=== PATIENT | female | born 1935 | race Caucasian/White ===

== ENCOUNTER → 2017-03-27 | Outpatient (CLI) | payer MEDICARE, OTHER ==
[~2017-03-27] MED LIST: CALCIUM + VITAM1 TAB PO; CIPRO PO; CLARITIN10 M2 PO; ECOTRIN325 MG PO; FLAGYL PO; FLEXERIL10 MG PO; GLUCOSAMINE CH1 EACH PO; HCTZ PO; MULTIVITAMIN W-1 TAB PO; NAPROSYN500 MG PO; PLENDIL10 MG PO; PRINIVIL10 MG PO; TAMOXIFEN CITRA20 MG PO; ZOCOR20 MG PO; ZOFRANODT PO
--- NOTE | ~2017-03-27 | US37 ---
[facility] A Service of [facility] & [facility] RADIOLOGY TEXT RESULTS PATIENT: DERRICK KEARNEY LOCATION: CNIV : 33 UNIT #: [id number] AGE: [address]: Erlin Berg MD SEX: F ORDER DR: [id number] [facility] [address] [place], [place] [address] [id number] O MR#: [id number] Acc #: [id number] NAME: DERRICK KEARNEY : 1935 SEX: F STUDY DATE/TIME: 03/27/2017 10:11 UNIT: CNIV ROOM: STUDY DESCRIPTION: US Carotid W/Doppler Bilateral Attending Physician: Erlin Berg M.D. Referring Physician: Erlin Berg M.D. Ordering Physician: Erlin Berg M.D. Primary Care Physician: Ran Hutchison M.D. MEDICAL IMAGING REPORT This report is preliminary unless electronic signature is present EXAM Carotid duplex scan, 03/27/17 HISTORY Carotid stenosis. FINDINGS The right common carotid artery has no significant plaque. There is heterogeneous dense plaque in the right carotid bulb which extends up into the proximal internal and external carotid arteries. The right internal carotid artery is noted to be relatively tortuous. Peak systolic velocity in the mid right internal carotid artery is 207 cm/sec with an end diastolic velocity of 50 cm/sec. There does not appear to be a focal stenosis in the mid internal carotid artery on B-mode imaging to correlate with the elevated velocities. The ICA/CCA ratio on the right is 2.3. Peak systolic velocity in the right external carotid artery is 105 cm/sec. The right vertebral artery is patent with antegrade flow. The left common carotid artery has no significant plaque. There is heterogeneous dense plaque in the left carotid bulb which extends up into the proximal internal and external carotid arteries. The left internal carotid artery is also relatively tortuous. Peak systolic velocity in the mid left internal carotid artery is 138 cm/sec with an end diastolic velocity of 37 cm/sec. The ICA/CCA ratio on the left is 1.0. Peak systolic velocity in the left external carotid artery is 134 cm/sec. The left vertebral artery is patent with antegrade flow. IMPRESSION Velocities in the internal carotid arteries are consistent with greater than or equal to 70% stenosis of the right internal carotid artery, and 50% to 69% stenosis of the left internal carotid artery, but these velocities may be falsely elevated because of tortuosity of the vessels. [facility] A Service of [facility] RADIOLOGY TEXT RESULTS PATIENT: DERRICK KEARNEY LOCATION: CNIV : 33 UNIT #: [id number] AGE: [address]: Erlin Berg MD SEX: F ORDER DR: This stenosis appears to be less severe in both carotid arteries by B-mode imaging. No significant stenosis of the right external carotid artery. Significant stenosis of the left external carotid artery. Patent vertebral arteries bilaterally with antegrade flow. Dictated by... Dg Piper M.D. THIS IS AN ELECTRONICALLY VERIFIED REPORT Dg Piper M.D. at 03/28/2017 7:30 AM Kenzie TD: 03/27/2017 21:59 JOB #: [id number] MEDICAL IMAGING REPORT Page 1 of 1 COPY
== END | disposition home or self-care (01) ==
LOC: CNIV 09:45
DX: I65.23 Occlusion and stenosis of bilateral carotid arteries (principal); E78.5 Hyperlipidemia, unspecified; I10 Essential (primary) hypertension
CPT/HCPCS: 93880

== ENCOUNTER → 2017-04-16 | Outpatient (CLI) | payer MEDICARE, OTHER ==
--- NOTE | ~2017-04-16 | MY11 ---
[facility] A Service of [facility] RADIOLOGY TEXT RESULTS PATIENT: DERRICK KEARNEY LOCATION: [facility] : 33 UNIT #: [id number] AGE: [address]: Tommie Alas MD SEX: F ORDER DR: [id number] [place] [id number] O MR#: [id number] Acc #: [id number] NAME: DERRICK KEARNEY : 1935 SEX: F STUDY DATE/TIME: 04/16/2017 10:55 UNIT: [facility] ROOM: STUDY DESCRIPTION: MY Mammogram Screening Dig Rohan Attending Physician: Tommie Alas M.D. Referring Physician: Tommie Alas M.D. Ordering Physician: Tommie Alas M.D. Primary Care Physician: Ran Hutchison M.D. MEDICAL IMAGING REPORT This report is preliminary unless electronic signature is present. EXAM Digital screening mammogram, 04/16/2017, [facility]. HISTORY 81-year-old woman, status post left lumpectomy with adjuvant radiation therapy, 2002. Annual screening. COMPARISON Comparison mammograms date to 02/28/2006, with most recent comparison 04/10/2016. FINDINGS Digital imaging of each breast was completed, utilizing screening protocol. Review includes FDA-approved CAD device. Breast parenchyma is fatty replaced. Post lumpectomy findings, inner hemisphere, left breast, are stable. There are stable benign calcifications noted in the left breast. Breast parenchyma is fatty replaced bilaterally. There is no interval occurring mass. There are no suspicious microcalcifications and no architectural deformity. IMPRESSION Negative mammogram. Stable post lumpectomy findings, left breast. Annual screening recommended. Patients over the age of 40 are entered into a reminder system with target due date for the next mammogram. A result letter will also be sent to the patient. BIRADS: 1 Negative Dictated by... [facility] A Service of [facility] & [facility] RADIOLOGY TEXT RESULTS PATIENT: DERRICK KEARNEY LOCATION: [facility] : 33 UNIT #: [id number] AGE: [address]: Tommie Alas MD SEX: F ORDER DR: Morgan Asencio M.D. THIS IS AN ELECTRONICALLY VERIFIED REPORT Morgan Asencio M.D. at 04/17/2017 8:11 AM KRISTEL/calixto TD: 04/16/2017 15:57 JOB #: [id number] MEDICAL IMAGING REPORT Page 1 of 1
== END | disposition home or self-care (01) ==
LOC: SMAM 11:00
DX: Z12.31 Encounter for screening mammogram for malignant neoplasm of breast (principal); Z98.890 Other specified postprocedural states
CPT/HCPCS: G0202